=== PATIENT | male | born 1950 | race Asian ===

== ENCOUNTER 2017-11-29 14:34 | Emergency (ER) | payer MEDICARE ==
[~2017-11-29] VITALS: Ht 162.6 cm; Wt 80.6 kg
[2017-11-29 14:37] VITALS: BP 166/80
== END 2017-11-29 15:55 ==
LOC: ED 15:49
DX: R05 Cough (principal); I10 Essential (primary) hypertension; J02.9 Acute pharyngitis, unspecified; R09.81 Nasal congestion
CPT/HCPCS: 71046; 99284

== ENCOUNTER 2019-04-03 16:14 | Emergency (ER) | payer MEDICARE ==
[~2019-04-03] VITALS: Ht 162.6 cm; Wt 85.0 kg
--- NOTE | 2019-04-03 16:51 | NUR ---
THIS IS A 68 Y/O MALE THAT ARRIVES TO ED WITH BILATERAL + 2 PITTING LEG EDEMA. PT REPORTS THAT HE FEELS SOB AND MORE TIRED. PT HAS HX OF HTN. PT REPORTS HE HAS GAINED 7 POUNDS SINCE YESTERDAY. PT DENIES ANY CHF HX BUT REPORTS THAT HIS FAMILY HAS HX OF IT. PT CONNECTED TO ALL MONITORS AND CALL LIGHT IN REACH. AWAITING FURTHER ORDERS. VSS. PIV PLACED AND CALL LIGHT IN REACH.
[2019-04-03] MEDS ORDERED: OXYB5TAB7 PO (16:58)
[2019-04-03] MEDS ORDERED: FLUT9.9S NAS (16:58)
[2019-04-03] MEDS ORDERED: VERA240C2 PO (16:58)
[2019-04-03] MEDS ORDERED: ALBU18HF NAS (16:58)
[2019-04-03] MEDS ORDERED: ATOR20TA37 PO (16:58)
[2019-04-03] MEDS ORDERED: LOSA25TA25 PO (16:58)
[2019-04-03] MEDS ORDERED: ASPI-515 PO (16:58)
[2019-04-03] MEDS ORDERED: AMLO10TA8 PO (16:58)
[2019-04-03] MEDS ORDERED: FUROSEMIDE 40 MG/4 ML IVPush ONE (17:00)
[2019-04-03 17:04] LABS: BASOPHILS # (AUTO) 0.03 x10^3/uL (0-0.1); BASOPHILS % (AUTO) 1 % (0-1); EOSINOPHILS # (AUTO) 0.06 x10^3/uL (0-0.4); EOSINOPHILS % (AUTO) 1 % (1-7); LYMPHOCYTES # (AUTO) 1.61 x10^3/uL (1-3.4); LYMPHOCYTES % (AUTO) 30 % (22-44); MD NO; MEAN CORPUSCULAR HEMOGLOBIN 32.1 pg (27.5-34.5); MEAN CORPUSCULAR HGB CONC 33.8 g/dL (33.2-36.2); MEAN CORPUSCULAR VOLUME 95.1 fL (81-97); MEAN PLATELET VOLUME 8.3 fL (7.4-10.4); MONOCYTES # (AUTO) 0.45 x10^3/uL (0.2-0.8); MONOCYTES % (AUTO) 8 % (2-9); NEUTROPHILS # (AUTO) 3.29 x10^3/uL (1.8-6.8); NEUTROPHILS % (AUTO) 61 % (42-75); PLATELET COUNT 219 x10^3/uL (130-400); RED BLOOD COUNT 4.55 x10^6/uL (4.38-5.82); RED CELL DISTRIBUTION WIDTH 13.6 % (9.4-14.8)
[2019-04-03] MEDS ORDERED: FUROSEMIDE 40 MG/4 ML ONE (17:06)
[2019-04-03 17:13] LABS: ALANINE AMINOTRANSFERASE 36 U/L (12-78); ANION GAP 9 mmol/L (5-15); CALCIUM 8.5 mg/dL (8.5-10.1); CHLORIDE 107 mmol/L (98-107); CREATININE 1.02 mg/dL (0.7-1.3)
[2019-04-03 17:18] LABS: ALKALINE PHOSPHATASE 54 U/L (45-117); BILIRUBIN,TOTAL 0.9 mg/dL (0.2-1.0); TOTAL PROTEIN 7.4 g/dL (6.4-8.2); TROPONIN I < 0.015 ng/mL (0.000-0.045)
--- NOTE | 2019-04-03 17:40 | NUR ---
UA SENT TO LAB
--- NOTE | 2019-04-03 17:50 | NUR ---
PT IS RESTING AT BEDSIDE VSS UPDATED
[2019-04-03 17:56] LABS: MICROSCOPIC NOT IND
[2019-04-03 18:05] LABS: CULTURE INDICATED? NO
[2019-04-03 19:26] VITALS: BP 153/73
== END 2019-04-03 19:28 | disposition home or self-care (01) ==
LOC: ED 16:53
DX: R60.0 Localized edema (principal); I10 Essential (primary) hypertension; J45.909 Unspecified asthma, uncomplicated; M79.605 Pain in left leg; M79.604 Pain in right leg
CPT/HCPCS: 36415; 71045; 80053; 81003; 83735; 83880; 84484; 85025; 93005; 93970; 96374; 99284; J1940